=== PATIENT | female | born 1975 | race Caucasian/White ===

== ENCOUNTER → 2024-02-05 | Outpatient (CLI) | payer OTHER ==
[~2024-02-05] MED LIST: ARIP15 PO; MIRT30 PO
[2024-02-06 12:12] LABS: Stool Occult Bld Immuno 1 Negative (NEGATIVE)
== END ==
LOC: LAB 05:45 → LAB SHORT 05:45 → LAB FUT 02-01 16:30
PROVIDERS: Family Medicine
DX: Z12.11 Encounter for screening for malignant neoplasm of colon (principal); Z11.3 Encounter for screening for infections with a predominantly sexual mode of transmission; E78.5 Hyperlipidemia, unspecified; R79.9 Abnormal finding of blood chemistry, unspecified; Z72.89 Other problems related to lifestyle
CPT/HCPCS: G0328